=== PATIENT | female | born 1950 | race Caucasian/White ===

== ENCOUNTER 2022-02-25 09:07 | Outpatient (REF) | payer MEDICARE, SELFPAY ==
[2022-02-25 10:38] LABS: Urine Cytology See Pathology rpt
[2022-02-25 10:47] LABS: MANUAL DIFF FLAG NO
[2022-02-25 10:53] LABS: Basophils Percent Auto 0.4 % (0-2); Eosinophils Absolute Auto 0.1 X10*3/uL (0.0-0.4); Eosinophils Percent Auto 1.1 % (0-4); Hematocrit 34.6 % (37.0-47.0); Hemoglobin 11.3 g/dl (12.0-16.0); Imm Gran Abs Auto 0.02 X10*3/uL (0.00-0.03); Imm Gran Pct Auto 0.3 % (0.0-0.4); Lymphocytes Absolute Auto 1.3 X10*3/uL (1.2-4.9); Lymphocytes Percent Auto 18.1 % (20-40); Mean Corpuscular HGB Conc 32.7 g/dl (31.0-35.0); Mean Corpuscular Hemoglobin 31.9 pg (27.0-33.0); Mean Corpuscular Volume 97.7 fL (80.0-98.0); Mean Platelet Volume 11.3 fL (9.4-12.3); Monocytes Absolute Auto 0.6 X10*3/uL (0.1-1.2); Neutrophils Absolute Auto 5.2 x10*3/uL (2.0-8.3); Neutrophils Percent Auto 72.1 % (45-73); Platelet Count 190 X10*3/uL (160-400); Red Blood Count 3.54 X10*6/uL (4.20-5.50); Red Cell Distribution Width 14.2 % (11.0-16.0); White Blood Count 7.1 X10*3/uL (4.8-10.8)
[2022-02-25 11:00] LABS: C Reactive Protein 1.31 mg/dL (< or = 0.50); Estimated Glomerular Filt Rate 59
[2022-02-25 11:31] LABS: Creatinine Urine 61.17 mg/dL; Total Protein Urine Random < 7 mg/dL (<12)
[2022-02-25 11:45] LABS: Erythrocyte Sedimentation Rate 44 MM/HR (0-20)
[2022-02-28 17:11] LABS: Vitamin D 25-OH, D2 5 ng/mL; Vitamin D 25-OH, D3 39 ng/mL; Vitamin D 25-OH, Total 44 ng/mL (30-100)
== END 2022-02-25 09:08 | disposition home or self-care (01) ==
LOC: HO.10HDL 09:07
PROVIDERS: Visit Provider Internal Medicine Rheumatology
DX: M32.9 Systemic lupus erythematosus, unspecified (principal); M81.8 Other osteoporosis without current pathological fracture; I25.709 Atherosclerosis of coronary artery bypass graft(s), unspecified, with unspecified angina pectoris; T38.0X5A Adverse effect of glucocorticoids and synthetic analogues, initial encounter; Z92.21 Personal history of antineoplastic chemotherapy; Z79.899 Other long term (current) drug therapy
CPT/HCPCS: 36415; 82306; 82565; 84156; 85025; 85652; 86140; 88112; 99212

== ENCOUNTER 2023-02-10 07:45 | Outpatient (AMB) | payer MEDICARE, SELFPAY ==
[2023-02-10 07:59] VITALS: BP 122/66; PULSE 68; TEMP 36.6; O2SAT 98; BMI 20.9
--- NOTE | 2023-02-10 07:59 | MHC.OFFVIS ---
Intake Vital Signs 02/10/23 07:59 Height 5 ft 6 in Weight 129 lb 10.109 oz BMI 20.9 BP 122/66 Blood Pressure Location Rt brachial Position Sitting Pulse 68 Pulse Source Pulse Oximeter Temp 97.9 F Temp Source Skin Pulse Oximetry (%) 98 Intake Visit Reasons: sle Intake Note: Pt seen today for SLE follow up. 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 Accompanied by: Self / Same As Patient Allergies amitriptyline Adverse Reaction (Unknown, Unverified 02/10/23 08:03) Unknown sulfacetamide Adverse Reaction (Unknown, Unverified 02/10/23 08:03) Unknown Medication List - Last Reconciled 02/10/23 by Zuhair Colorado MD alendronate 70 mg PO QWEEK aspirin (Adult Low Dose Aspirin) 81 mg PO DAILY atorvastatin 40 mg PO BEDTIME calcium carb and citrate-vitD3 600 mg-12.5 mcg (500 unit) ER (Citracal-D3 Slow Release) tabs PO DAILY carboxymethylcellulose sodium 0.5% (Refresh Tears) 1 drp ophthalmic (eye) BID PRN lactobacillus combination no.9 (Adult 50 Plus Probiotic) 4,000 mmu cells PO DAILY levothyroxine 50 mcg PO DAILY metoprolol tartrate 25 mg PO BID multivitamin 1 tab PO DAILY HPI HPI Comments History of Present Illness Details The patient returns for evaluation of her SLE. She says she has been doing well since her coronary bypass surgery. She has no exertional shortness of breath or chest pain. She does not really have any significant joint pains and takes no analgesics. She remains on atorvastatin and beta blockers because of her heart disease. She has noted no skin rashes, oral ulcers, or headache. She has remained on the metoprolol for blood pressure control. The torsemide has been stopped. She is back on the alendronate 70 mg once a week for osteoporosis. This had been restarted after a break because of low bone density on her DEXA from 2021. She seems to be tolerating that well. She tells me her primary doctor was concerned because she had a positive JJ. 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 Diverticulosis Essential hypertension Generalized anxiety disorder Irritable bowel syndrome (IBS) Osteoarthritis, hand Post-surgical hypothyroidism Rosacea Sicca syndrome Systemic lupus erythematosus Venous insufficiency of both lower extremities Surgical History (Updated 02/20/22 @ 14:51 by JANI Theodore) Hx of colonoscopy Hx of thyroidectomy S/P CABG x 2 Family History (Updated 02/20/22 @ 14:48 by JANI Theodore) Sister Breast cancer, Onset Age: 50 Melanoma Diabetes Meningioma Lyme disease Father Leukemia Mother Myocardial infarction Hypertension Son Depression Social History (Updated 02/25/22 @ 08:03 by Seferino Gerard LPN) Household Members: Spouse and Family Housing: House Alcohol intake: former Year quit: 1999 Patient Tobacco Use Status: Former Tobacco user Quit Date: 1991 e-Cigarette/Vaping Use: Never Used service: No Current occupational status: retired Review of Systems Const Details: Negative for appetite change, weight change, fever, chills, malaise and fatigue Eyes Details: Negative for vision change, dry eyes,headaches and dizziness ENT Details: Negative for hearing change, tinnitus, oral ulcer, nose bleeds and oral dryness. Card Details: Negative chest pain, edema and syncope Resp Details: Negative for SOB, cough and wheezing GI Details: Negative indigestion/heartburn, nausea, abdominal pain, bowel changes, diarrhea, constipation and bloody stool. Details: Negative for dysuria, hematuria, nocturia, decreased force/flow and genital discharge Skin/Breast Details: Negative for itching, rash, hives, Raynaud's symptoms, sun sensitivity, and skin cancer Neuro Details: She believe she may have memory problems at times. Negative for epilepsy, palsy, stroke, changes in speech, tingling and weakness Psych Details: Negative for anxiety, depression and stress Endo Details: Negative for polyuria and polydypsia Charan/Lymph Details: Negative for excessive bruising or bleeding. Physical Exam Vital Signs: Last Vital Signs Temp 97.9 F 02/10/23 07:59 Pulse 68 02/10/23 07:59 BP 122/66 02/10/23 07:59 Pulse Ox 98 02/10/23 07:59 BMI result Body Mass Index 20.9 APPEARANCE: Patient in no acute distress EYES no redness, pupils equal and reactive to light, eyelids normal EARS: External ear normal, canal clear and tympanic membrane normal. NOSE/SINUS: Airflow through both nares, no nasal discharge, no bleeding THROAT: Oral mucosa moist, no ulcerations NECK: No thyromegaly or masses, no adenopathy, trachea midline. HEART: Regulrar rhythm, S1-S2 heard, no murmurs, rubs or gallops. LUNG: Clear to percussion and auscultation ABD: Normal bowel sounds, no organomegaly, masses or tenderness. EXTREMITIES:? no ankle edema.no calf tenderness, normal peripheral pulses. NEURO:? Oriented and alert x3.? No focal weakness.? Reflexes symmetric.? Gait normal. SKIN:? No inflammatory or neoplastic lesions.? Normal color and turgor JOINT EXAM:.?? Cervical Spine:.? Full range of motion without pain; no tenderness. Thoracic Spine:.? No scoliosis.? No tenderness on palpation. Lumbar Spine:.? Alignment normal.? Slight pain with extremes of range of motion.? No tenderness. Chest Wall:.? No tenderness, swelling, increased warmth or erythema. Hands:.? Normal pain-free range of motion with slight bony enlargement at the PIP joints.? These are minimally tender without any soft tissue swelling.? Elsewhere in the hand there is no tenderness, swelling, increased warmth or erythema.? There is no thenar atrophy or sensory loss. Wrists:.? Normal pain-free range of motion with slight tenderness but no swelling, increased warmth or erythema. Elbows:. Normal pain-free range of motion without tenderness, swelling, increased warmth or erythema. Shoulders:.?? Full range of motion without pain.? Slight anterior tenderness but no adenopathy, tenderness, weakness, swelling, increased warmth or erythema. Hips:.? Full range of motion without pain. Hip bursa:.? No tenderness. Knees:.?? Normal pain-free range of motion with mild patellofemoral crepitus.? No effusion, tenderness, swelling, increased warmth or erythema.? Ankles:.? Normal pain-free range of motion without tenderness, swelling, increased warmth or erythema. Feet:.? Normal pain-free range of motion without tenderness, swelling, increased warmth or erythema. ? Results Reviewed Results Reviewed: Laboratory Tests 02/25/22 02/25/22 02/25/22 09:10 09:10 09:10 WBC 7.1 Hgb 11.3 L Plt Count 190 Creatinine 0.94 C-Reactive Protein 1.31 H 25-OH Vitamin D Total 44 Protein/Creatinin Ratio 02/25/22 09:10 WBC Hgb Plt Count Creatinine C-Reactive Protein 25-OH Vitamin D Total Protein/Creatinin Ratio TNP Lab work from [facility], October 2022: Hemoglobin 12.2, hematocrit 39, white count 6.3, platelet count [id number], anti DNA 9, C3 and C4 normal, JJ positive, Assessment & Plan Assessment & Plan (1) Osteoarthritis, hand: Code(s): M19.049 - Primary osteoarthritis, unspecified hand (2) Corticosteroid-induced osteoporosis: Comment: On Fosamax while prednisone for SLE. Repeat [facility] 2007 wnl; Fosamax DC'd; repeat BMD in 2007 good. Fosamax restarted 09/19 stopped early 2021 - restarted 01/24 Code(s): M81.8 - Other osteoporosis without current pathological fracture; T38.0X5A - Adverse effect of glucocorticoids and synthetic analogues, initial encounter (3) Systemic lupus erythematosus: Comment: Onset 1999 with arthritis, pleuritis WHO class IV DPGN, optic neuritis Rx with IV cycolphosphamide ([id number]) and good response Eye exam 03/13, 07/16, 09/17. Hydroxychloroquine restarted - Hydroxychloroquine stopped 12/18- ? VF abnormal Code(s): M32.9 - Systemic lupus erythematosus, unspecified Plan SLE with no signs of clinical activity currently or in recent years. It is not surprising the anti-DNA and JJ remains positive as it does in most patients with SLE. Most of the time that is independent of the level of clinical activity. 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 I would concur with continuing the alendronate at this point. Another bone density could be entertained in 2023 to see if there has been any change from the 1 from last year. I would plan to see her back at the end of this year. Orders: Orders C Reactive Protein Today M32.9 - Systemic lupus erythematosus, unspecified Protein Creatinine Ratio, Ur Today M32.9 - Systemic lupus erythematosus, unspecified Complete Blood Count Auto Diff Today M32.9 - Systemic lupus erythematosus, unspecified Erythrocyte Sedimentation Rate Today M32.9 - Systemic lupus erythematosus, unspecified Complement C3 Today M32.9 - Systemic lupus erythematosus, unspecified Complement C4 Today M32.9 - Systemic lupus erythematosus, unspecified Comprehensive Met. Panel Today M32.9 - Systemic lupus erythematosus, unspecified Coding Level of Care Code Est Pt Level 3 (41248) Diagnoses Osteoarthritis, hand M19.049 Corticosteroid-induced osteoporosis M81.8; T38.0X5A Systemic lupus erythematosus M32.9
== END 2023-02-10 08:35 | disposition home or self-care (01) ==
PROVIDERS: PCP Internal Medicine; Visit Provider Internal Medicine Rheumatology
DX: M19.049 Primary osteoarthritis, unspecified hand (principal); M81.8 Other osteoporosis without current pathological fracture; T38.0X5A Adverse effect of glucocorticoids and synthetic analogues, initial encounter; M32.9 Systemic lupus erythematosus, unspecified
CPT/HCPCS: 99213

== ENCOUNTER → 2023-02-10 07:45 | Outpatient (BNVA) | payer MEDICARE, SELFPAY | PROVIDERS: PCP Internal Medicine; Visit Provider Internal Medicine Rheumatology | DX: M32.9 Systemic lupus erythematosus, unspecified (principal); M19.049 Primary osteoarthritis, unspecified hand; M81.8 Other osteoporosis without current pathological fracture; T38.0X5D Adverse effect of glucocorticoids and synthetic analogues, subsequent encounter | CPT/HCPCS: 99212 ==

== ENCOUNTER 2023-06-09 11:14 | Outpatient (REF) | payer MEDICARE, SELFPAY ==
[2023-06-09 11:46] LABS: MANUAL DIFF FLAG NO
[2023-06-09 12:48] LABS: Basophils Percent Auto 0.7 % (0-2); Eosinophils Absolute Auto 0.1 X10*3/uL (0.0-0.4); Eosinophils Percent Auto 1.6 % (0-4); Hematocrit 35.1 % (37.0-47.0); Hemoglobin 11.3 g/dl (12.0-16.0); Imm Gran Abs Auto 0.01 X10*3/uL (0.00-0.03); Imm Gran Pct Auto 0.2 % (0.0-0.4); Lymphocytes Absolute Auto 1.4 X10*3/uL (1.2-4.9); Lymphocytes Percent Auto 23.5 % (20-40); Mean Corpuscular HGB Conc 32.2 g/dl (31.0-35.0); Mean Corpuscular Hemoglobin 31.7 pg (27.0-33.0); Mean Corpuscular Volume 98.6 fL (80.0-98.0); Mean Platelet Volume 11.3 fL (9.4-12.3); Monocytes Absolute Auto 0.5 X10*3/uL (0.1-1.2); Monocytes Percent Auto 7.4 % (2-11); Neutrophils Absolute Auto 4.1 x10*3/uL (2.0-8.3); Neutrophils Percent Auto 66.6 % (45-73); Platelet Count 211 X10*3/uL (160-400); Red Blood Count 3.56 X10*6/uL (4.20-5.50); Red Cell Distribution Width 13.5 % (11.0-16.0); White Blood Count 6.1 X10*3/uL (4.8-10.8)
[2023-06-09 13:24] LABS: Erythrocyte Sedimentation Rate 23 MM/HR (0-20)
[2023-06-09 13:40] LABS: Creatinine Urine 46.19 mg/dL; Total Protein Urine Random < 7 mg/dL (<12)
[2023-06-09 14:38] LABS: Alanine Aminotransferase 42 U/L (0-31); Alkaline Phosphatase 78 U/L (39-117); Anion Gap 11 (12-20); Aspartate Amino Transferase 50 U/L (5-31); Bilirubin Total 0.7 mg/dL (0.0-1.0); Blood Urea Nitrogen 26 mg/dL (9-16); C Reactive Protein 0.13 mg/dL (< or = 0.50); Calcium 9.3 mg/dL (8.4-10.2); Carbon Dioxide 31 mmol/L (22-29); Chloride 99 mmol/L (96-108); Estimated Glomerular Filt Rate > 60; Glucose Random 84 mg/dL (60-115); Potassium 4.7 mmol/L (3.3-5.1); Sodium 136 mmol/L (135-145); Total Protein 7.2 g/dL (6.5-8.0)
[2023-06-13 01:43] LABS: Complement C3 110 mg/dL (83-193)
== END 2023-06-09 11:15 | disposition home or self-care (01) ==
LOC: HO.LAB 11:14
PROVIDERS: PCP Internal Medicine; Visit Provider Internal Medicine Rheumatology
DX: M32.9 Systemic lupus erythematosus, unspecified (principal)
CPT/HCPCS: 36415; 80053; 82570; 84156; 85025; 85652; 86140; 86160

== ENCOUNTER 2023-06-16 08:04 | Outpatient (AMB) | payer MEDICARE, SELFPAY ==
[2023-06-16 08:09] VITALS: BP 122/64; PULSE 61; TEMP 36.1; O2SAT 98; BMI 21.5
--- NOTE | 2023-06-16 08:09 | A.OFFVIS_ITS ---
Intake Vital Signs 06/16/23 08:09 Height 5 ft 6 in Weight 133 lb 2.547 oz BMI 21.5 BP 122/64 Blood Pressure Location Lt brachial Position Sitting Pulse 61 Pulse Source Pulse Oximeter Temp 96.9 F Temp Source Skin Pulse Oximetry (%) 98 Oxygen Delivery Method Room Air Intake Visit Reasons: sle Intake Note: Patient presents today to follow up on SLE. Last seen by SPENCER 02/10/23. Pt reports being seen at [facility] for stiff neck. 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 Accompanied by: Self / Same As Patient Allergies amitriptyline Adverse Reaction (Unknown, Unverified 06/16/23 08:15) Unknown sulfacetamide Adverse Reaction (Unknown, Unverified 06/16/23 08:15) Unknown Medication List - Last Reconciled 06/16/23 by Zuhair Colorado MD alendronate 70 mg PO QWEEK aspirin (Adult Low Dose Aspirin) 81 mg PO DAILY atorvastatin 40 mg PO BEDTIME calcium carb and citrate-vitD3 600 mg-12.5 mcg (500 unit) ER (Citracal-D3 Slow Release) tabs PO DAILY carboxymethylcellulose sodium 0.5% (Refresh Tears) 1 drp ophthalmic (eye) BID PRN lactobacillus combination no.9 (Adult 50 Plus Probiotic) 4,000 mmu cells PO DAILY levothyroxine 50 mcg PO DAILY levothyroxine 50 mcg PO DAILY metoprolol tartrate 25 mg PO BID multivitamin 1 tab PO DAILY HPI HPI Comments History of Present Illness Details The patient returns for evaluation of her SLE and osteoporosis. She remains on alendronate 70 mg weekly. She is complaining of some intermittent right hand numbness. This occurs particularly at night. We thought she had carpal tunnel syndrome but she has never had a nerve conduction study. She was in the ER back in April with a spasm and pain in the neck so probably does have some cervical degenerative arthritis. In the ER they gave her a shot of Toradol and prescriptions for naproxen and cyclobenzaprine. She did refill the prescriptions as the symptoms subsided. The neck does not bother her much at present however. She has seen her primary doctor at [facility]. Mild elevation of the LFTs were noted. She had negative serologies for hepatitis but does have a low titer positive smooth muscle antibody. She has not had significant LFT elevations before. There have been no recent signs of lupus activity such as joint swelling, skin rashes, chest pain, or abdominal pain. Her cardiac situation is stable after coronary bypass surgery. She remains on aspirin, atorvastatin, and metoprolol. [facility] Medical History (Updated 06/16/23 @ 08:48 by Zuhair Colorado MD) Corticosteroid-induced osteoporosis Systemic lupus erythematosus Rosacea Diverticulosis Irritable bowel syndrome (IBS) Cataracts, bilateral Osteoarthritis, hand Sicca syndrome Post-surgical hypothyroidism Generalized anxiety disorder Cardiomyopathy Venous insufficiency of both lower extremities Essential hypertension CHF (congestive heart failure) Coronary artery disease involving coronary bypass graft of [place] heart with angina pectoris Surgical History Hx of colonoscopy Hx of thyroidectomy S/P CABG x 2 Family History Sister Breast cancer, Onset Age: 50 Melanoma Diabetes Meningioma Lyme disease Father Leukemia Mother Myocardial infarction Hypertension Son Depression Social History Household Members: Spouse and Family Housing: House Alcohol intake: former Year quit: 1999 Patient Tobacco Use Status: Former Tobacco user Quit Date: 1991 e-Cigarette/Vaping Use: Never Used service: No Current occupational status: retired Review of Systems Const Details: Her weight is up slightly this fall. Negative for appetite change, fever, chills, malaise and fatigue Eyes Details: Negative for vision change, dry eyes,headaches and dizziness ENT Details: Negative for hearing change, tinnitus, oral ulcer, nose bleeds and oral dryness. Card Details: Negative chest pain, edema and syncope Resp Details: Negative for SOB, cough and wheezing GI Details: Negative indigestion/heartburn, nausea, abdominal pain, bowel changes, diarrhea, constipation and bloody stool. Skin/Breast Details: Negative for itching, rash, hives, Raynaud's symptoms, sun sensitivity, and skin cancer Neuro Details: Intermittent right hand numbness. Negative for epilepsy, palsy, stroke, changes in speech, and weakness Endo Details: Negative for polyuria and polydypsia Charan/Lymph Details: Negative for excessive bruising or bleeding. Physical Exam Vital Signs: Last Vital Signs Temp 96.9 F 06/16/23 08:09 Pulse 61 06/16/23 08:09 BP 122/64 06/16/23 08:09 Pulse Ox 98 06/16/23 08:09 Oxygen Delivery Method Room Air 06/16/23 08:09 BMI result Body Mass Index 21.5 APPEARANCE: Patient in no acute distress EYES no redness, pupils equal and reactive to light, eyelids normal EARS: External ear normal, canal clear and tympanic membrane normal. NOSE/SINUS: Airflow through both nares, no nasal discharge, no bleeding THROAT: Oral mucosa moist, no ulcerations NECK: No thyromegaly or masses, no adenopathy, trachea midline. HEART: Regulrar rhythm, S1-S2 heard, no murmurs, rubs or gallops. LUNG: Clear to percussion and auscultation ABD: Normal bowel sounds, no organomegaly, masses or tenderness. EXTREMITIES:? no ankle edema.no calf tenderness, normal peripheral pulses. NEURO:? Oriented and alert x3.? No focal weakness.? Reflexes symmetric.? Gait normal. SKIN:? No inflammatory or neoplastic lesions.? Normal color and turgor JOINT EXAM:.?? Cervical Spine:.? Full range of motion with mild discomfort at the extremes of motion. No tenderness. Thoracic Spine:.? No scoliosis.? No tenderness on palpation. Lumbar Spine:.? Alignment normal.? Slight pain with extremes of range of motion.? No tenderness. Chest Wall:.? No tenderness, swelling, increased warmth or erythema. Hands:.? Normal pain-free range of motion with slight bony enlargement at the PIP joints.? These are minimally tender without any soft tissue swelling.? Elsewhere in the hand there is no tenderness, swelling, increased warmth or erythema.? There is no thenar atrophy or sensory loss. Wrists:.? Normal pain-free range of motion with slight tenderness but no swelling, increased warmth or erythema. Elbows:. Normal pain-free range of motion without tenderness, swelling, increased warmth or erythema. Shoulders:.?? Full range of motion without pain.? Slight anterior tenderness but no adenopathy, tenderness, weakness, swelling, increased warmth or erythema. Hips:.? Full range of motion without pain. Hip bursa:.? No tenderness. Knees:.?? Normal pain-free range of motion with mild patellofemoral crepitus.? No effusion, tenderness, swelling, increased warmth or erythema.? Ankles:.? Normal pain-free range of motion without tenderness, swelling, increased warmth or erythema. Feet:? Normal pain-free range of motion without tenderness, swelling, increased warmth or erythema. Results Reviewed Results Reviewed: Laboratory Tests 02/25/22 06/09/23 06/09/23 09:10 11:42 11:42 WBC 6.1 Hgb 11.3 L ESR 23 H Creatinine 0.84 AST 50 H ALT 42 H C-Reactive Protein 0.13 25-OH Vitamin D Total 44 Laboratory Tests 06/09/23 11:40 U Random Total Protein < 7 lab work from [facility]: AST 26, ALT 29, bilirubin 0.8, alkaline phosphatase 87, ferritin 99, iron saturation 29%, JJ positive 1:320, anti double-stranded DNA positive, anti smooth muscle antibody positive, anti mitochondrial antibody negative, Sjogren's antibodies and scleroderma antibodies negative Assessment & Plan Assessment & Plan (1) Corticosteroid-induced osteoporosis: Comment: On Fosamax while prednisone for SLE. Repeat [facility] 2007 wnl; Fosamax DC'd; repeat BMD in 2007 good. Fosamax restarted 09/19 stopped early 2021 - restarted 01/24 Code(s): M81.8 - Other osteoporosis without current pathological fracture; T38.0X5A - Adverse effect of glucocorticoids and synthetic analogues, initial encounter (2) Osteoarthritis, hand: Code(s): M19.049 - Primary osteoarthritis, unspecified hand (3) Numbness of right hand: Code(s): R20.0 - Anesthesia of skin (4) Systemic lupus erythematosus: Comment: Onset 1999 with arthritis, pleuritis WHO class IV DPGN, optic neuritis Rx with IV cycolphosphamide ([id number]) and good response Eye exam 03/13, 07/16, 09/17. Hydroxychloroquine restarted - Hydroxychloroquine stopped 12/18- ? VF abnormal Code(s): M32.9 - Systemic lupus erythematosus, unspecified Plan SLE with no signs of clinical activity in recent years. She does have some signs of osteoarthritis in the hands. The recent bout of neck pain and spasm suggest cervical osteoarthritis. She does have some paresthesias in the right hand. These seem to be more bothersome at night, somewhat typical for carpal tunnel syndrome but with the neck pain there could also be a cervical disc problem. Given the persistence of her symptoms I think we should do EMG study to see if we can document where she has the nerve compression problem in the neck, elbow or hand. She tried to use a wrist splint but if seems to be more comfortable for her. Recent blood work did confirm slight elevation of the transaminases. I told her to follow-up with the GI consultation in light of the positive smooth muscle antibody. This can be seen with autoimmune hepatitis but this liver involvement really has not been a part of her SLE in the past. Perhaps this is just fatty liver brought on by her recent weight gain. A follow-up at about 5 or 6 months seems reasonable. I will put in lab work to be done before that visit. Orders: Orders NE electromyogram (EMG) Today R20.0 - Anesthesia of skin Anti DNA DS Antibody Today M32.9 - Systemic lupus erythematosus, unspecified Complement C3 Today M32.9 - Systemic lupus erythematosus, unspecified Protein Creatinine Ratio, Ur Today M32.9 - Systemic lupus erythematosus, unspecified Comprehensive Met. Panel Today M32.9 - Systemic lupus erythematosus, unspecified Complement C4 Today M32.9 - Systemic lupus erythematosus, unspecified Complete Blood Count Auto Diff Today M32.9 - Systemic lupus erythematosus, unspecified Coding Level of Care Code Est Pt Level 4 (96765) Diagnoses Corticosteroid-induced osteoporosis M81.8; T38.0X5A Osteoarthritis, hand M19.049 Numbness of right hand R20.0 Systemic lupus erythematosus M32.9
== END 2023-06-16 08:54 | disposition home or self-care (01) ==
PROVIDERS: PCP Internal Medicine; Visit Provider Internal Medicine Rheumatology
DX: M81.8 Other osteoporosis without current pathological fracture (principal); T38.0X5A Adverse effect of glucocorticoids and synthetic analogues, initial encounter; M19.049 Primary osteoarthritis, unspecified hand; R20.0 Anesthesia of skin; M32.9 Systemic lupus erythematosus, unspecified
CPT/HCPCS: 99214

== ENCOUNTER → 2023-06-16 08:04 | Outpatient (BNVA) | payer MEDICARE, SELFPAY | PROVIDERS: PCP Internal Medicine; Visit Provider Internal Medicine Rheumatology | DX: M32.9 Systemic lupus erythematosus, unspecified (principal); M81.8 Other osteoporosis without current pathological fracture; M19.049 Primary osteoarthritis, unspecified hand; R20.0 Anesthesia of skin; T38.0X5A Adverse effect of glucocorticoids and synthetic analogues, initial encounter | CPT/HCPCS: 99212 ==

== ENCOUNTER 2023-07-30 13:09 | Outpatient (REF) | payer MEDICARE, SELFPAY ==
--- NOTE | 2023-07-30 13:26 | EMG_ITS ---
Chief complaint: Hand numbness right worse than left. Neck pain. Reason for referral: Evaluate for Carpal Tunnel Syndrome versus radiculopathy Referred by: Dr. [place] Procedure done: Right upper extremity NCS/EMG ordered, added left upper extremity NCS Precautions and/or limitations: None The limb temperature was monitored continuously and remained between 32-36 degrees C during the performance of the NCS. Nerve Conduction Studies Anti Sensory Summary Table ?Stim Site NR Onset (ms) Norm Onset (ms) Peak (ms) Norm Peak (ms) O-P Amp (?V) Norm O-P Amp Site1 Site2 Delta-0 (ms) Dist (cm) Hussein (m/s) Norm Hussein (m/s) Left Median Anti Sensory (2nd Digit) Wrist ? 3.8 5.0 <3.6 7.5 >10 Wrist 2nd Digit 3.8 14.0 37 Right Median Anti Sensory (2nd Digit) Wrist ? 4.3 5.0 <3.6 16.6 >10 Wrist 2nd Digit 4.3 14.0 33 Right Radial Anti Sensory (Thumb) Forearm ? 1.6 2.2 <3.1 13.6 Forearm Thumb 1.6 0.0 Left Ulnar Anti Sensory (5th Digit) Wrist ? 2.5 3.8 <3.7 23.5 >15.0 Wrist 5th Digit 2.5 14.0 56 Right Ulnar Anti Sensory (5th Digit) Wrist ? 2.6 3.4 <3.7 31.6 >15.0 Wrist 5th Digit 2.6 14.0 54 Motor Summary Table ?Stim Site NR Onset (ms) Norm Onset (ms) O-P Amp (mV) Norm O-P Amp iAmp (mV) Amp (1st) (%) Site1 Site2 Delta-0 (ms) Dist (cm) Hussein (m/s) Norm Hussein (m/s) Left Median Motor (Abd Poll Brev) Wrist ? 4.9 <3.9 8.0 >4.5 9.3 100.0 Elbow Wrist 4.4 20.0 45 >45 Elbow ? 9.3 7.8 9.0 97.5 Right Median Motor (Abd Poll Brev) Wrist ? 4.8 <3.9 11.1 >4.5 12.9 100.0 Elbow Wrist 4.5 21.0 47 >45 Elbow ? 9.3 8.8 10.2 79.3 Left Ulnar Motor (Abd Dig Minimi) Wrist ? 2.9 <3.0 6.0 >5 8.0 100.0 B Elbow Wrist 3.1 18.0 58 >45 B Elbow ? 6.0 5.3 7.1 88.3 A Elbow B Elbow 1.7 10.0 59 >45 A Elbow ? 7.7 4.9 6.4 81.7 Right Ulnar Motor (Abd Dig Minimi) Wrist ? 2.8 <3.0 9.0 >5 10.9 100.0 B Elbow Wrist 3.6 19.0 53 >45 B Elbow ? 6.4 8.7 10.4 96.7 A Elbow B Elbow 1.3 10.0 77 >45 A Elbow ? 7.7 8.4 10.1 93.3 EMG ?Side Muscle Nerve Root Ins Act Fibs Psw Amp Dur Poly Recrt Int Pat Comment Right 1stDorInt Ulnar C8-T1 Nml Nml Nml Nml Nml 0 Nml Complete Right FlexCarRad Median C6-7 Nml Nml Nml Nml Nml 0 Nml Complete Right Biceps Musculocut C5-6 Nml Nml Nml Nml Nml 0 Nml Complete Right Triceps Radial C6-7-8 Nml Nml Nml Nml Nml 0 Nml Complete Right Deltoid Axillary C5-6 Nml Nml Nml Nml Nml 0 Nml Complete FINDINGS: Bilateral median motor nerves showed prolonged distal latency, normal amplitude and normal conduction velocity. Bilateral median sensory nerve showed prolonged peak latency. All other nerves tested were within normal. Concentric needle EMG was performed in selected muscles of the right upper extremity. Study did not reveal signs of electric abnormalities as shown in the table below. IMPRESSION: 1. This is an abnormal study. 2. There is electrodiagnostic evidence for bilateral moderate-severe median neuropathy at the wrist, consistent with carpal tunnel syndrome. 3. There is no electrodiagnostic evidence for ulnar neuropathy, brachial plexopathy, or cervical radiculopathy. Thank you for your kind referral. Wendy Melgoza MD, MAR Board Certified, [place] [employer] and [employer] (ABPMR) Board Certified, [place] Board of Electrodiagnostic Medicine (ABEM) [place]ODIN [id number] [facility]
== END 2023-07-30 13:10 | disposition home or self-care (01) ==
LOC: HO.NEURO 13:09
PROVIDERS: PCP Internal Medicine; Visit Provider Internal Medicine Rheumatology
DX: R20.0 Anesthesia of skin (principal)
CPT/HCPCS: 95886; 95911

== ENCOUNTER → 2023-07-30 13:26 | Outpatient (BNV) | payer MEDICARE, SELFPAY | PROVIDERS: PCP Internal Medicine; Visit Provider Physical Medicine & Rehabilitation | DX: G56.03 Carpal tunnel syndrome, bilateral upper limbs (principal); G56.13 Other lesions of median nerve, bilateral upper limbs | CPT/HCPCS: 95886; 95911 ==